=== PATIENT | female | born 2000 | race Caucasian/White ===

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

== ENCOUNTER 2019-03-21 15:18 | Emergency (ER) | payer OTHER ==
[2019-03-21 15:30] VITALS: BP 136/63
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
== END 2019-03-21 16:00 | disposition home or self-care (01) ==
LOC: UCCORT 15:18
DX: J03.90 Acute tonsillitis, unspecified (principal); Z77.22 Contact with and (suspected) exposure to environmental tobacco smoke (acute) (chronic)
CPT/HCPCS: 87651; 99212; G0463

== ENCOUNTER 2019-05-08 11:53 | Emergency (ER) | payer OTHER ==
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
[2019-05-08 12:06] VITALS: BP 125/91
[2019-05-08] MEDS ORDERED: Ibuprofen TAB* 400 MG PO ONE (12:18)
[2019-05-08 12:26] LABS: Influenza A Molecular NEGATIVE (Negative); Influenza B Molecular NEGATIVE (Negative)
== END 2019-05-08 12:30 | disposition home or self-care (01) ==
LOC: UCCORT 11:53
DX: J02.0 Streptococcal pharyngitis (principal); R53.83 Other fatigue
CPT/HCPCS: 87651; 99212; A9270-GY; G0463